=== PATIENT | female | born 1990 | race African-American/Black ===

== ENCOUNTER 2021-08-02 12:50 | Emergency (ER) | payer MEDICAID ==
[~2021-08-02] VITALS: Ht 157.5 cm; Wt 54.0 kg
[2021-08-02] MEDS ORDERED: SODIUM CHLORIDE 0.9% 1,000 ML IV ONE (13:15)
[2021-08-02] MEDS ORDERED: KETOROLAC 15MG/ML VIAL IV ONE (13:15)
[2021-08-02] MEDS ORDERED: CEFTRIAXONE 1 G PREMIX 50 ML IV ONE (13:30)
[2021-08-02 13:38] LABS: BASOPHILS % 0.4 % (0.0-2.0); EOSINOPHILS % 0.1 % (0.0-5.0); HEMATOCRIT. 36.2 % (36.0-48.0); HEMOGLOBIN. 12.1 g/dL (12.0-16.0); LYMPHOCYTES % 9.3 % (20.0-50.0); MEAN CORPUSCULAR HEMOGLOBIN 28.7 pg (28.0-32.0); MEAN CORPUSCULAR VOLUME 85.9 fL (81.0-99.0); MEAN PLATELET VOLUME 9.4 fl (7.4-10.4); MONOCYTES % 8.9 % (2.0-8.0); NEUTROPHILS % 81.3 % (40.0-76.0); PLATELET 260 x1000/uL (130-400); RED BLOOD CELL COUNT 4.21 mill/uL (4.2-5.4); RED CELL DISTRIBUTION WIDTH 13.6 % (11.6-14.6)
[2021-08-02 13:41] LABS: CLARITY URINE TURBID (CLEAR); COLOR URINE YELLOW (YELLOW); KETONES URINE TRACE (NEGATIVE); LEUKOCYTE ESTERASE URINE 3+ (NEGATIVE); NITRITE URINE POSITIVE (NEGATIVE); OCCULT BLOOD URINE 3+ (NEGATIVE); PROTEIN URINE 1+ (NEGATIVE); SPECIFIC GRAVITY URINE 1.013 (1.005-1.030); UROBILINOGEN URINE 0.2 E.U./dL (0.2-1.0)
[2021-08-02 14:03] LABS: CHLORIDE 104 mEq/L (98-107)
[2021-08-02 14:17] LABS: HCG SCREEN NEGATIVE
[2021-08-02] MEDS ORDERED: CEPH500C2 MT (15:12)
[2021-08-02] MEDS ORDERED: IBUP-2028 MT (15:13)
[2021-08-02 15:55] VITALS: BP 116/77
== END 2021-08-02 16:05 | disposition home or self-care (01) ==
LOC: ER 12:50
DX: N39.0 Urinary tract infection, site not specified (principal); N10 Acute pyelonephritis
CPT/HCPCS: 36415; 76700; 80053; 81003; 81025; 84703; 85025; 87077; 87086; 87186; 96365; 96366; 96375; 99284; J0696; J1885; J7030